=== PATIENT | male | born 1930 | race Caucasian/White ===

== ENCOUNTER 2018-11-02 09:22 | Outpatient (CLI) | payer OTHER ==
--- NOTE | 2018-11-02 09:59 | ULT ---
Exam: Bilateral renal ultrasound HISTORY: Chronic kidney COMPARISON: 10/17/2025 FINDINGS: Right kidney: Normal cortical echotexture. Septated anechoic focus measuring 7.4 x 4.5 x 8.0 cm likel y representing a cortical cyst. Smaller anechoic focus measuring 0.9 cm is noted in the midpole of the right kidney, likely representing a subcentimeter cyst. No hydronephrosis. Right kidney measurements: 5.1 x 5.5 x 10.1 cm. Left kidney: Normal cortical echotexture. Anechoic focus in the left kidney measuring 1.5 x 1.4 x 1.6 cm compatible with the midpole cortical cyst. No hydronephrosis. Left kidney measurements 5.1 x 5.0 x 10.3 cm. Urinary bladder: Limited evaluation due to inadequate distention IMPRESSION: 1. No hydronephrosis 2. Bilateral renal cortical cysts as described
== END 2018-11-02 09:23 | disposition home or self-care (01) ==
LOC: SCSULT 09:22
PROVIDERS: ATTEND Urology
DX: N18.9 Chronic kidney disease, unspecified (principal); Q61.3 Polycystic kidney, unspecified
CPT/HCPCS: 76770